=== PATIENT | male | born 1960 | race Caucasian/White ===

== ENCOUNTER → 2016-12-31 | Outpatient (CLI) | payer OTHER ==
[~2016-12-31] MED LIST: HYDR12.58 PO; QUIN20TA PO
[2016-12-31 14:33] LABS: BLOOD UREA NITROGEN 12 mg/dL (7-18)
[2016-12-31 14:39] LABS: ASPARTATE AMINO TRANSFERASE 24 U/L (15-37)
== END | disposition home or self-care (01) ==
LOC: STAR 13:23
PROVIDERS: ATTEND Internal Medicine
DX: Z01.818 Encounter for other preprocedural examination (principal); D12.6 Benign neoplasm of colon, unspecified
CPT/HCPCS: 36415; 80053

== ENCOUNTER 2017-01-07 09:42 | Day surgery (SDC) | payer OTHER ==
[~2017-01-07] VITALS: Ht 182.9 cm; Wt 73.0 kg
[2017-01-07] MEDS ORDERED: LACTATED RINGERS 1,000 ML IV SCH (09:51)
[2017-01-07 10:06] VITALS: BP 115/80
[2017-01-07] MEDS ORDERED: MIDAZOLAM 1 MG/ML, 5ML ONE (10:56)
[2017-01-07] MEDS ORDERED: FENTANYL PF 250 MCG/5ML ONE (10:56)
[2017-01-07] MEDS ORDERED: PROPOFOL 10 MG/ML, 50ML ONE (12:41)
[2017-01-07] MEDS ORDERED: PROPOFOL 10 MG/ML, 20ML ONE (12:41)
[2017-01-07] MEDS ORDERED: ONDANSETRON 2MG/ML, 2ML IVPush PRN (13:30)
[2017-01-07] MEDS ORDERED: HYDROmorphone 1 MG/ML, 1ML IV PRN (13:30)
[2017-01-07] MEDS ORDERED: EPHEDRINE 50 MG/ML, 1ML IVPush PRN (13:30)
[2017-01-07] MEDS ORDERED: ACETAMINOPHEN 325 MG TABLET PO PRN (13:30)
[2017-01-07] MEDS ORDERED: hydrALAzine 20 MG/ML, 1ML IV PRN (13:30)
[2017-01-07] MEDS ORDERED: OXYcodone 5 MG/5 ML ORAL.SOL UDC PO PRN (13:30)
[2017-01-07] MEDS ORDERED: METOPROLOL 1 MG/ML, 5ML IV PRN (13:30)
[2017-01-07] MEDS ORDERED: LABETALOL 5MG/ML, 20ML IV PRN (13:30)
[2017-01-07] MEDS ORDERED: FENTANYL PF 100 MCG/2ML IV PRN (13:30)
== END 2017-01-07 14:30 | disposition home or self-care (01) ==
LOC: OUT 09:42
PROVIDERS: ATTEND Internal Medicine
DX: D12.2 Benign neoplasm of ascending colon (principal); D12.0 Benign neoplasm of cecum; I10 Essential (primary) hypertension; K21.9 Gastro-esophageal reflux disease without esophagitis; J45.20 Mild intermittent asthma, uncomplicated; Z85.71 Personal history of Hodgkin lymphoma; Z90.81 Acquired absence of spleen; Z80.42 Family history of malignant neoplasm of prostate; Z82.49 Family history of ischemic heart disease and other diseases of the circulatory system; Z72.89 Other problems related to lifestyle; Z88.2 Allergy status to sulfonamides
CPT/HCPCS: 45380; 45385; 88305; J2250; J2704; J3010

== ENCOUNTER → 2017-05-06 | Outpatient (CLI) | payer OTHER ==
[2017-05-06 09:50] LABS: ASPARTATE AMINO TRANSFERASE 24 U/L (15-37); BLOOD UREA NITROGEN 15 mg/dL (7-18)
== END | disposition home or self-care (01) ==
LOC: STAR 08:13
PROVIDERS: ATTEND Thoracic Surgery (Cardiothoracic Vascular Surgery)
DX: Z01.818 Encounter for other preprocedural examination (principal); K40.90 Unilateral inguinal hernia, without obstruction or gangrene, not specified as recurrent; I10 Essential (primary) hypertension; J45.909 Unspecified asthma, uncomplicated
CPT/HCPCS: 36415; 80053

== ENCOUNTER 2017-05-11 06:05 | Day surgery (SDC) | payer OTHER ==
[~2017-05-11] VITALS: Ht 182.9 cm; Wt 77.0 kg
[2017-05-11] MEDS ORDERED: MIDAZOLAM 1 MG/ML, 2ML ONE (06:38)
[2017-05-11] MEDS ORDERED: FENTANYL PF 100 MCG/2ML ONE ×4 (06:38→09:00)
[2017-05-11] MEDS ORDERED: LACTATED RINGERS 1,000 ML IV SCH ×2 (06:40→08:50)
[2017-05-11 06:41] VITALS: BP 149/91
[2017-05-11] MEDS ORDERED: BUPIVACAINE/PF 0.5% ONE (07:09)
[2017-05-11] MEDS ORDERED: EPINEPHRINE 1 MG/ML, 1ML ONE (07:09)
[2017-05-11] MEDS ORDERED: ACETAMINOPHEN 325 MG TABLET PO PRN (07:30)
[2017-05-11] MEDS ORDERED: FENTANYL PF 100 MCG/2ML IV PRN (07:30)
[2017-05-11] MEDS ORDERED: PROMETHAZINE 25 MG/ML, 1ML IV PRN (07:30)
[2017-05-11] MEDS ORDERED: hydrALAzine 20 MG/ML, 1ML IV PRN (07:30)
[2017-05-11] MEDS ORDERED: ONDANSETRON 2MG/ML, 2ML IVPush PRN ×2 (07:30→09:00)
[2017-05-11] MEDS ORDERED: MEPERIDINE/PF 25MG/0.5ML IVPush PRN (07:30)
[2017-05-11] MEDS ORDERED: LABETALOL 5MG/ML, 20ML IV PRN (07:30)
[2017-05-11] MEDS ORDERED: OXYcodone 5 MG/5 ML ORAL.SOL UDC PO PRN (07:30)
[2017-05-11] MEDS ORDERED: HYDROmorphone 1 MG/ML, 1ML IV PRN (07:30)
[2017-05-11] MEDS ORDERED: LABETALOL 5MG/ML 40ML VIAL ONE (07:37)
[2017-05-11] MEDS ORDERED: CEFAZOLIN 1,000 MG ONE (07:37)
[2017-05-11] MEDS ORDERED: GLYCOPYRROLATE 0.2MG/1ML ONE (07:37)
[2017-05-11] MEDS ORDERED: ROCURONIUM 10 MG/ML ONE (07:37)
[2017-05-11] MEDS ORDERED: NEOSTIGMINE 1 MG/ML, 10ML ONE (07:37)
[2017-05-11] MEDS ORDERED: KETOROLAC 30 MG/1 ML ONE (07:37)
[2017-05-11] MEDS ORDERED: PROPOFOL 10 MG/ML, 20ML ONE (07:37)
[2017-05-11] MEDS ORDERED: hydrALAzine 20 MG/ML, 1ML ONE (08:59)
[2017-05-11] MEDS ORDERED: OXYcodone 5 MG/5 ML ORAL.SOL UDC ONE (09:00)
[2017-05-11] MEDS ORDERED: morphine SULFATE 10 MG/ML, 1ML IVPush PRN (09:00)
[2017-05-11] MEDS ORDERED: ACETAMINOPHEN 650 MG/20.3 ML UDC ONE (09:00)
[2017-05-11] MEDS ORDERED: HYDROcodone/APAP 5/325 TABLET PO PRN (09:00)
== END 2017-05-11 16:05 ==
LOC: OUT 06:05
PROVIDERS: ATTEND Thoracic Surgery (Cardiothoracic Vascular Surgery)
DX: K40.30 Unilateral inguinal hernia, with obstruction, without gangrene, not specified as recurrent (principal); J45.909 Unspecified asthma, uncomplicated; I10 Essential (primary) hypertension; Z98.890 Other specified postprocedural states; Z88.1 Allergy status to other antibiotic agents; Z72.89 Other problems related to lifestyle
CPT/HCPCS: 49650; C1781; J0171; J0690; J1885; J2250; J2704; J2710; J3010; J3490; J7120

== ENCOUNTER 2018-11-10 15:39 | Emergency (ER) | payer OTHER ==
[~2018-11-10] VITALS: Ht 182.9 cm; Wt 76.3 kg
[~2018-11-10 15:39] MED LIST changes: -HYDR12.58 PO; +HYDROCHLOROTH12.5 MG PO
[2018-11-10 15:49] VITALS: BP 152/78
[2018-11-10] MEDS ORDERED: IBUPROFEN 800 MG TABLET PO STA (16:21)
[2018-11-10] MEDS ORDERED: ACETAMINOPHEN 325 MG TABLET ONE (16:25)
[2018-11-10] MEDS ORDERED: IBUPROFEN 800 MG TABLET ONE (16:26)
[2018-11-10] MEDS ORDERED: ACETAMINOPHEN 325 MG TABLET PO ONE (16:30)
[2018-11-10 16:35] LABS: ALBUMIN 3.9 g/dL (3.4-5.0); ANION GAP 6 mmol/L (5-15); CALCIUM 8.8 mg/dL (8.5-10.1); CHLORIDE 102 mmol/L (98-107)
[2018-11-10 16:36] LABS: MEAN CORPUSCULAR HEMOGLOBIN 29.5 pg (27.5-34.5); MEAN CORPUSCULAR HGB CONC 33.2 g/dL (33.2-36.2); MEAN PLATELET VOLUME 8.2 fL (7.4-10.4); PLATELET COUNT 458 x10^3/uL (130-400); RED BLOOD COUNT 5.63 x10^6/uL (4.38-5.82); RED CELL DISTRIBUTION WIDTH 14.8 % (9.4-14.8)
[2018-11-10 16:38] LABS: ALANINE AMINOTRANSFERASE 27 U/L (12-78); ALKALINE PHOSPHATASE 107 U/L (45-117); BILIRUBIN,TOTAL 1.5 mg/dL (0.2-1.0); CREATININE 1.14 mg/dL (0.7-1.3); TOTAL PROTEIN 7.3 g/dL (6.4-8.2)
[2018-11-10 17:06] LABS: BASOPHILS # (AUTO) 0.05 x10^3/uL (0-0.1); BASOPHILS % (AUTO) 0 % (0-1); EOSINOPHILS % (AUTO) 4 % (1-7); LYMPHOCYTES # (AUTO) 1.91 x10^3/uL (1-3.4); LYMPHOCYTES % (AUTO) 13 % (22-44); MD SCAN; MONOCYTES # (AUTO) 1.74 x10^3/uL (0.2-0.8); MONOCYTES % (AUTO) 12 % (2-9); NEUTROPHILS % (AUTO) 71 % (42-75)
--- NOTE | 2018-11-10 18:02 | NUR ---
Patient/Caregiver given discharge instructions and they have confirmed that they understand the instructions. Patient ambulatory with steady gait.
[2018-11-10 19:01] LABS: RAPID INFLUENZA A INDETERMINATE (Negative); RAPID INFLUENZA B INDETERMINATE (Negative)
== END 2018-11-10 18:03 | disposition home or self-care (01) ==
LOC: ED 16:52
DX: J15.9 Unspecified bacterial pneumonia (principal); J20.8 Acute bronchitis due to other specified organisms; R50.9 Fever, unspecified; I10 Essential (primary) hypertension
CPT/HCPCS: 36415; 71045; 80053; 85025; 87400; 99284

== ENCOUNTER 2019-03-05 06:51 | Outpatient (CLI) | payer OTHER | END 2019-03-05 23:59 | disposition home or self-care (01) | LOC: CVU 06:51 | PROVIDERS: ATTEND Internal Medicine Cardiovascular Disease | DX: I07.1 Rheumatic tricuspid insufficiency (principal); I10 Essential (primary) hypertension | CPT/HCPCS: 0399T; 93306 ==

== ENCOUNTER 2019-04-05 12:32 | Outpatient (CLI) | payer OTHER | END 2019-04-05 23:59 | disposition home or self-care (01) | LOC: CARD 12:32 | PROVIDERS: ATTEND Internal Medicine Critical Care Medicine | DX: R05 Cough (principal) | CPT/HCPCS: 94060; 94726; 94729 ==

== ENCOUNTER 2019-08-30 10:14 | Day surgery (SDC) | payer OTHER ==
[~2019-08-30] VITALS: Ht 182.9 cm; Wt 73.9 kg
[2019-08-30] MEDS ORDERED: LACTATED RINGERS 1,000 ML IV SCH (11:20)
[2019-08-30 12:00] LABS: ALANINE AMINOTRANSFERASE 42 U/L (12-78); ALBUMIN 4.1 g/dL (3.4-5.0); ANION GAP 10 mmol/L (5-15); CALCIUM 9.5 mg/dL (8.5-10.1); CHLORIDE 106 mmol/L (98-107); CREATININE 1.07 mg/dL (0.7-1.3)
[2019-08-30 12:02] LABS: ALKALINE PHOSPHATASE 113 U/L (45-117); BILIRUBIN,TOTAL 3.1 mg/dL (0.2-1.0); TOTAL PROTEIN 7.5 g/dL (6.4-8.2)
[2019-08-30 13:51] VITALS: BP 137/98
[2019-08-30] MEDS ORDERED: PROPOFOL 10 MG/ML, 20ML ONE ×3 (14:08)
[2019-08-30] MEDS ORDERED: FENTANYL PF 100 MCG/2ML ONE (14:13)
== END 2019-08-30 15:35 | disposition home or self-care (01) ==
LOC: OUT 10:14
PROVIDERS: ATTEND Internal Medicine
DX: Z09 Encounter for follow-up examination after completed treatment for conditions other than malignant neoplasm (principal); D12.0 Benign neoplasm of cecum; K51.40 Inflammatory polyps of colon without complications; I10 Essential (primary) hypertension; Z86.010 Personal history of colon polyps
CPT/HCPCS: 36415; 45381; 45385; 80053; 88305; 93005; J2704; J3010